=== PATIENT | female | born 1965 | race Caucasian/White ===

== ENCOUNTER 2024-02-11 09:23 | Emergency (ER) | payer OTHER ==
[2024-02-11 09:32] VITALS: BP 123/79; PULSE 89; RESP 17; TEMP 98; BMI 29.4
[2024-02-11] MEDS ORDERED: IBUPROFEN 400 MG TABLET (FP) PO ONE (11:07)
[2024-02-11] MEDS ORDERED: LIDOCAINE 4% PATCH TP ONE (11:07)
[2024-02-11] MEDS: IBUPROFEN 400 MG TABLET (FP) PO ONE (11:11)
[2024-02-11] MEDS: LIDOCAINE 4% PATCH TP ONE (11:11)
[2024-02-11] MEDS ORDERED: LIDOCAINE PATCH REMOVAL MC ONE (22:00)
== END 2024-02-11 11:46 | disposition home or self-care (01) ==
LOC: JERFT 09:23
DX: M54.50 Low back pain, unspecified (principal); M54.6 Pain in thoracic spine; W10.8XXA Fall (on) (from) other stairs and steps, initial encounter
CPT/HCPCS: 99283-25